=== PATIENT | female | born 1985 | race Hispanic/Latino ===

== ENCOUNTER 2018-11-04 22:08 | Emergency (ER) | payer BC ==
[~2018-11-04] VITALS: Ht 167.6 cm; Wt 124.7 kg
[2018-11-04 22:27] VITALS: BP 144/111
[2018-11-04] MEDS ORDERED: TORADOL IM STA (22:28)
[2018-11-04] MEDS ORDERED: NORFLEX IM STA (22:28)
[2018-11-04] MEDS ORDERED: NORFLEX ONE (22:29)
[2018-11-04] MEDS ORDERED: TORADOL ONE (22:29)
--- NOTE | 2018-11-04 22:34 | PCM.EKG ---
[facility] Test Date: 2018-11-04 Test Time: 22:33:47 Pat Name: LELAND MEDEROS Department: Patient ID: [id number] Room: Gender: F Round Boner: SALLY : 1985 Requested By: ZARIA BABIN Order Number: [id number] Reading MD: Zaria BABIN Measurements Intervals [place] Rate: 102 P: 36 IA: 150 QRS: 5 QRSD: 88 T: 66 QT: 352 QTc: 458 Interpretive Statements Sinus tachycardia Otherwise normal ECG No previous ECG available for comparison Electronically Signed On 11-05-2018 6:04:26 [employer] by Zaria BABIN Please click the below link to view image of tracing.
--- NOTE | 2018-11-04 22:48 | DIREP ---
PROCEDURE:XRAY SHOULDER MIN 2 VWS-LT COMPARISON:None. INDICATIONS:[place] pain FINDINGS: BONES:Normal. JOINTS:Normal glenohumeral and acromioclavicular joints. No evidence for dislocation. SOFT TISSUES:Normal. OTHER:Normal. CONCLUSION:Normal left shoulder. Dictated by: Deshawn Brooks M.D. on 11/04/2018 at 10:46 PM
--- NOTE | 2018-11-04 22:51 | ER.PDOC ---
General Chief Complaint: Extremities Stated Complaint: L SHOULDER PAIN Time seen by MD: 22:48 Source: patient Exam Limitations: no limitations History of Present Illness Initial Comments Left shoulder pain, patient was driving and experienced sudden onset of left shoulder pain. She denies any fall or injury. Occurred: this evening Severity: moderate Allergies: Coded Allergies: No Known Allergies (Unverified , 11/04/18) Past Medical History Medical History: no pertinent history Surgical History: , tonsillectomy Social History Smoking: non-smoker Alcohol Use: none Drug Use: none Review of Systems Constitutional: no symptoms reported EENTM: no symptoms reported Respiratory: no symptoms reported Cardiovascular: no symptoms reported Gastrointestinal: no symptoms reported Musculoskeletal: see HPI All Other Systems: Reviewed and Negative Physical Exam General Appearance: Alert, No Apparent Distress Shoulder: tenderness (with muscle spasms) Upper Extremities: uninjuried below shoulder Neuro: sensation nml, motor nml Vascular: no vascular compromise Skin: warm/dry Head/ENT: nml inspection, pharynx nml Neck/Back: non-tender, nml inspection, painless ROM Respiratory: chest non-tender, breath sounds nml CVS: reg rate & rhythm, heart sounds nml Abdomen: non-tender, no organomegaly Results/Orders Results/Orders Administered Medications Medications (Trade) Dose Ordered Sig/[place] Route PRN Reason Start Time Stop Time Status Last Admin Dose Admin Ketorolac Tromethamine (Toradol) 60 mg STAT STAT IM 11/04/18 22:28 11/04/18 22:30 DC 11/04/18 22:36 Orphenadrine Citrate (Norflex) 60 mg STAT STAT IM 11/04/18 22:28 11/04/18 22:30 DC 11/04/18 22:35 Progress Progress Patient feeling better. EKG/XRAY/CT/US EKG Comments: Sinus tachycardia XRAY Comments: Normal left shoulder Departure Time of Disposition: 23:05 Disposition: 01 HOME, SELF-CARE Impression: Primary Impression: Shoulder pain, left Condition: Improved Referrals: PCP,UNKNOWN (PCP) PRIMARY CARE PROVIDER Additional Instructions: Tramadol Ibuprofen Flexeril F/U with PCP in 2-3 days Duration or Time Spent with Pa: 45 mins Problem Qualifiers Primary Impression: Shoulder pain, left Chronicity: acute Qualified Codes: M25.512 - Pain in left shoulder ZARIA BABIN MD Nov 04, 2018 22:51
--- NOTE | 2018-11-04 22:55 | NUR ---
PAIN PATIENT STATES, "THE PAIN IS A LITTLE BETTER ON THE LEFT, BUT IT IS MOVING TO THE RIGHT SIDE NOW AT THE BOTTOM OF MY NECK." DR BABIN INFORMED OF PATIENT PAIN.
[2018-11-04 23:15] VITALS: BP 164/89
== END 2018-11-04 23:12 | disposition home or self-care (01) ==
LOC: ER 22:08
DX: M25.512 Pain in left shoulder (principal); Z90.89 Acquired absence of other organs
CPT/HCPCS: 73030; 93005; 96372; 99285; J1885; J2360